=== PATIENT | female | born 1960 | race Caucasian/White ===

== ENCOUNTER 2020-07-08 18:08 | Emergency (ER) | payer MEDICAID ==
[~2020-07-08] VITALS: Ht 170.2 cm; Wt 81.6 kg
[2020-07-08] MEDS ORDERED: GABAPENTIN (18:19)
[2020-07-08] MEDS ORDERED: OLANZAPINE (18:19)
[2020-07-08] MEDS ORDERED: ONDANSETRON 4MG ODT PO ONE (18:45)
[2020-07-08] MEDS ORDERED: FAMOTIDINE 20MG TABLET PO ONE (18:45)
[2020-07-08] MEDS ORDERED: PREDNISONE 20MG TABLET PO ONE (18:45)
[2020-07-08] MEDS ORDERED: ONDANSETRON HCL 4MG/2ML INJ IV ONE (20:15)
[2020-07-08] MEDS ORDERED: ACETAMINOPHEN 500MG TABLET PO ONE (21:45)
[2020-07-08 21:56] VITALS: BP 135/77
== END 2020-07-08 22:13 | disposition home or self-care (01) ==
LOC: ER 18:08
DX: T78.1XXA Other adverse food reactions, not elsewhere classified, initial encounter (principal); Z91.013 Allergy to seafood; Z96.653 Presence of artificial knee joint, bilateral; Z98.890 Other specified postprocedural states; Y92.89 Other specified places as the place of occurrence of the external cause
CPT/HCPCS: 96374; 99285; J2405; J7512; Q0162

== ENCOUNTER 2024-08-02 14:42 | Inpatient (IN) | payer MEDICAID ==
[~2024-08-02] VITALS: Ht 177.8 cm; Wt 106.6 kg
[~2024-08-02 14:42] MED LIST: GABAPENTIN; OLANZAPINE
[2024-08-02 15:36] LABS: BASOPHILS % 0.7 % (0.0-2.0); EOSINOPHILS % 0.9 % (0.0-5.0); HEMATOCRIT. 24.3 % (36.0-48.0); HEMOGLOBIN. 7.3 g/dL (12.0-16.0); LYMPHOCYTES % 34.5 % (20.0-50.0); MEAN CORPUSCULAR HEMOGLOBIN 19.6 pg (28.0-32.0); MEAN CORPUSCULAR HGB CONC 30.1 g/dL (31.0-37.0); MEAN CORPUSCULAR VOLUME 65.3 fL (81.0-99.0); MEAN PLATELET VOLUME 8.1 fl (7.4-10.4); MONOCYTES % 6.9 % (2.0-8.0); PLATELET 244 x1000/uL (130-400); RED BLOOD CELL COUNT 3.72 mill/uL (4.2-5.4); RED CELL DISTRIBUTION WIDTH 18.1 % (11.6-14.6); WHITE BLOOD COUNT 6.4 x1000/uL (4.5-11.0)
[2024-08-02 15:41] LABS: ADD RBC MORPHOLOGY YES; DIFFERENTIAL COMMENT 1
[2024-08-02] MEDS: SODIUM CHLORIDE 0.9% 1,000 ML IV ONE (15:42)
[2024-08-02 15:44] LABS: PROTHROMBIN TIME 10.9 sec (9.6-11.0)
[2024-08-02 15:51] LABS: CHLORIDE 109 mEq/L (98-107); POTASSIUM 3.5 mEq/L (3.5-5.1); SODIUM 140 mEq/L (136-145)
[2024-08-02 15:53] LABS: CALCIUM 8.9 mg/dL (8.7-10.4); CARBON DIOXIDE 24 mEq/L (21-32)
[2024-08-02 15:58] LABS: CREATININE 0.7 mg/dL (0.6-1.0); GLUCOSE 90 mg/dL (70-105)
[2024-08-02 16:00] LABS: ALANINE AMINOTRANSFERASE < 7 IU/L (10-49); ASPARTATE AMINOTRANSFERASE 13 IU/L (<34); BILIRUBIN TOTAL 0.3 mg/dL (0.1-1.0); PROTEIN TOTAL 6.4 g/dL (6.0-8.3)
[2024-08-02 16:02] LABS: BILIRUBIN DIRECT < 0.1 mg/dL (<=3.0); ETHANOL BLOOD < 10 mg/dL (<10); TROPONIN I HIGH SENSITIVITY < 4 ng/L (3.0-34); UREA NITROGEN BLOOD < 5 mg/dL (9-23)
[2024-08-02 18:04] LABS: IRON 14 ug/dL (50-170)
[2024-08-02 18:07] LABS: TOTAL IRON BINDING CAPACITY 402 ug/dl (250-425)
[2024-08-02 18:21] LABS: TROPONIN I HIGH SENSITIVITY < 4 ng/L (3.0-34)
[2024-08-02 19:16] LABS: HYPOCHROMASIA 2+; MICROCYTOSIS 3+; PLATELET ESTIMATE NORMAL
[2024-08-02 19:17] LABS: OVALOCYTES 1+
[2024-08-02 19:18] LABS: ANISOCYTOSIS 2+
[2024-08-02] MEDS ORDERED: MAGNESIUM/ALUMINUM HYDROXIDE/SIMETHICONE 30ML UDC PO PRN (21:30)
[2024-08-02] MEDS ORDERED: CLONIDINE 0.1MG TABLET PO PRN (21:30)
[2024-08-02] MEDS ORDERED: ACETAMINOPHEN 650MG/20.3ML UDC GT PRN (21:30)
[2024-08-02] MEDS ORDERED: GUAIFENESIN 200MG/10ML SUGAR FREE UDC PO PRN (21:30)
[2024-08-02] MEDS ORDERED: ONDANSETRON HCL 4MG/2ML INJ IV PRN (21:30)
[2024-08-02] MEDS ORDERED: IPRATROPIUM/ALBUTEROL 0.5-3(2.5)MG/3ML NEB HHN PRN (21:30)
[2024-08-02] MEDS ORDERED: ACETAMINOPHEN 650MG SUPP PR PRN (21:30)
[2024-08-02] MEDS ORDERED: DOCUSATE SODIUM 100MG CAPSULE PO PRN (21:30)
[2024-08-02] MEDS ORDERED: MORPHINE SULFATE 4 MG/ML INJ (FOR IV/IM USE) IV ONE (22:15)
[2024-08-02] MEDS: MORPHINE SULFATE 2 MG/ML INJ (NOT FOR IM USE) IV NR (22:48)
[2024-08-02] MEDS ORDERED: MORPHINE SULFATE 4 MG/ML INJ (FOR IV/IM USE) IV NR (23:00)
[2024-08-03 06:52] LABS: CARBON DIOXIDE 25 mEq/L (21-32); CHLORIDE 109 mEq/L (98-107); POTASSIUM 3.6 mEq/L (3.5-5.1); SODIUM 141 mEq/L (136-145)
[2024-08-03 06:54] LABS: CALCIUM 8.9 mg/dL (8.7-10.4)
[2024-08-03 06:58] LABS: CREATININE 0.8 mg/dL (0.6-1.0); GLUCOSE 103 mg/dL (70-105); TRIGLYCERIDE 82 mg/dL (0-150); UREA NITROGEN BLOOD 9 mg/dL (9-23)
[2024-08-03 06:59] LABS: LDL CHOLESTEROL 112 mg/dL (5-100); T4 FREE 0.91 ng/dL (0.89-1.76); THYROID STIMULATING HORMONE 1.67 uIU/mL (0.55-4.78)
[2024-08-03 07:00] LABS: CHOLESTEROL 160 mg/dL (<200); HDL CHOLESTEROL 45 mg/dL (>65)
[2024-08-03 07:53] LABS: BASOPHILS % 0.7 % (0.0-2.0); HEMATOCRIT. 28.8 % (36.0-48.0); LYMPHOCYTES % 34.3 % (20.0-50.0); MEAN CORPUSCULAR HEMOGLOBIN 21.2 pg (28.0-32.0); MEAN CORPUSCULAR HGB CONC 31.1 g/dL (31.0-37.0); MEAN PLATELET VOLUME 8.6 fl (7.4-10.4); MONOCYTES % 6.5 % (2.0-8.0); NEUTROPHILS % 57.5 % (40.0-76.0); PLATELET 199 x1000/uL (130-400); RED BLOOD CELL COUNT 4.24 mill/uL (4.2-5.4); RED CELL DISTRIBUTION WIDTH 20.2 % (11.6-14.6); WHITE BLOOD COUNT 7.1 x1000/uL (4.5-11.0)
[2024-08-03 08:14] LABS: DIFFERENTIAL COMMENT 1
[2024-08-03] MEDS: ACETAMINOPHEN 325MG TABLET PO PRN (12:36)
[2024-08-03 13:31] VITALS: BP 116/64; PULSE 81; RESP 18; TEMP 36.7516
[2024-08-03 14:00] VITALS: BP 116/64; PULSE 81; RESP 18; TEMP 36.72516; O2SAT 94
[2024-08-03] MEDS ORDERED: NALOXONE HCL 0.4MG/ML VIAL IV PRN (15:45)
[2024-08-03] MEDS: TRAMADOL 50MG TABLET PO PRN (16:05)
[2024-08-03 17:06] VITALS: BP 119/55; PULSE 82; RESP 18; TEMP 36.78072; O2SAT 97
[2024-08-03] MEDS: ENOXAPARIN 30MG/0.3ML SYR SUBCUT SCH (18:20)
[2024-08-03] MEDS: FERROUS SULFATE 325MG TABLET PO SCH (18:20)
[2024-08-03 20:00] VITALS: BP 137/70; PULSE 86; RESP 20; TEMP 36.55848; O2SAT 96
[2024-08-04 04:00] VITALS: BP 116/61; PULSE 81; RESP 20; TEMP 36.6696; O2SAT 96
[2024-08-04 07:16] LABS: HEMATOCRIT 24.8 % (36.0-48.0); HEMOGLOBIN 7.5 g/dL (12.0-16.0); MEAN CORPUSCULAR HEMOGLOBIN 20.6 pg (28.0-32.0); MEAN CORPUSCULAR HGB CONC 30.4 g/dL (31.0-37.0); MEAN CORPUSCULAR VOLUME 67.9 fL (81.0-99.0); PLATELET 184 x1000/uL (130-400); RED BLOOD CELL COUNT 3.65 mill/uL (4.2-5.4); RED CELL DISTRIBUTION WIDTH 19.9 % (11.6-14.6); WHITE BLOOD COUNT 5.8 x1000/uL (4.5-11.0)
[2024-08-04 08:14] VITALS: BP 124/47; PULSE 82; RESP 20; TEMP 36.61404; O2SAT 94
[2024-08-04 11:00] LABS: HEMATOCRIT 25.1 % (36.0-48.0); HEMOGLOBIN 7.8 g/dL (12.0-16.0)
[2024-08-04 11:44] VITALS: BP 99/42; PULSE 78; RESP 18; TEMP 36.78072; O2SAT 93
[2024-08-04] MEDS ORDERED: FERR-63 PO (12:19)
[2024-08-04 12:32] LABS: LACTATE DEHYDROGENASE 176 IU/L (120-246)
[2024-08-04] MEDS: POLYETHYLENE GLYCOL 3350 (17GM) 1 DOSE PACK PO SCH (12:55)
[2024-08-04] MEDS ORDERED: PALI819S IM (13:53)
[2024-08-04] MEDS ORDERED: OLAN15TA35 PO (13:53)
[2024-08-04 14:14] VITALS: BP 99/42; PULSE 78; TEMP 98.2; O2SAT 93
[2024-08-04 15:54] VITALS: BP 122/64; PULSE 90; RESP 19; TEMP 36.72516; O2SAT 97
[2024-08-05] MEDS ORDERED: FERROUS SULFATE 325MG TABLET PO SCH (09:00)
== END 2024-08-04 16:40 | disposition home or self-care (01) | DRG 422 ==
LOC: ER 14:42 → EDBEDREQ 14:56 → 5WST 20:16 → EDBEDREQTM 20:34 → EDBEDREQ 20:34 → 7WST 08-03 13:03
PROVIDERS: ADMIT Internal Medicine; ATTEND Internal Medicine
PROC: 30233N1 Transfusion of Nonautologous Red Blood Cells into Peripheral Vein, Percutaneous Approach (ICD-10-PCS; principal; 2024-08-02)
DX: E86.0 Dehydration (principal); I95.9 Hypotension, unspecified; D50.9 Iron deficiency anemia, unspecified; E78.5 Hyperlipidemia, unspecified; F17.210 Nicotine dependence, cigarettes, uncomplicated; F10.10 Alcohol abuse, uncomplicated; G89.29 Other chronic pain; Y90.9 Presence of alcohol in blood, level not specified; J98.11 Atelectasis; K21.9 Gastro-esophageal reflux disease without esophagitis; Z91.013 Allergy to seafood
CPT/HCPCS: 36415; 70460; 71045; 80048; 80061; 80076; 80320; 82270; 82728; 83540; 83550; 83605; 83615; 83880; 84145; 84439; 84443; 84484; 85014; 85018; 85025; 85027; 85044; 86850; 86900; 86920; 93005; 97166; 99291; J1650; J2270; P9016; G0480